=== PATIENT | female | born 1995 | race Caucasian/White ===

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

== ENCOUNTER → 2017-03-09 | Outpatient (CLI) | payer OTHER ==
[~2017-03-09] MED LIST: NAPR1TAB86 PO; PRED20TA PO
--- NOTE | 2017-03-09 15:22 | REP ---
REASON: Right knee pain times two years. COMPARISON: 05/12/2013. FINDINGS: The compartments are symmetric and relatively well maintained. There is no acute fracture or destructive osseous lesion. No change from the prior exam. Signed by Kofi Randle DO 03/10/2017 11:29 A
== END ==
LOC: M SMT 13:55
PROVIDERS: ATTEND Physician Assistant
DX: M25.561 Pain in right knee (principal)

== ENCOUNTER 2017-03-12 06:24 | Emergency (ER) | payer OTHER ==
[2017-03-12 06:30] VITALS: BP 134/85
[2017-03-12] MEDS ORDERED: NAPR1TAB86 PO (06:35)
[2017-03-12] MEDS ORDERED: diphenhydrAMINE INJ 50MG/ML VIAL (J1200) IV STA (06:45)
[2017-03-12] MEDS ORDERED: dexameTHASONE 20 MG/5 ML VIAL (J1100) IV ONE (06:45)
[2017-03-12] MEDS ORDERED: PRED20TA PO (06:51)
== END 2017-03-12 07:29 | disposition home or self-care (01) ==
LOC: M ED 06:24
DX: T78.40XA Allergy, unspecified, initial encounter (principal); X58.XXXA Exposure to other specified factors, initial encounter; Y92.9 Unspecified place or not applicable; Y93.9 Activity, unspecified; Y99.8 Other external cause status; Z79.1 Long term (current) use of non-steroidal anti-inflammatories (NSAID); Z88.6 Allergy status to analgesic agent
CPT/HCPCS: 96374; 96375; 99283; J1100; J1200

== ENCOUNTER → 2017-10-21 | Outpatient (REF) | payer OTHER ==
[2017-10-21 20:30] LABS: CHLAMYDIA DNA AMPLIFICATION NEGATIVE (NEGATIVE); GC DNA AMPLIFICATION NEGATIVE (NEGATIVE)
== END ==
LOC: M SFHCWAGY 17:00
DX: R10.2 Pelvic and perineal pain (principal)
CPT/HCPCS: 87591

== ENCOUNTER → 2017-10-26 | Outpatient (CLI) | payer OTHER | LOC: M WHC 09:17 | DX: R10.2 Pelvic and perineal pain (principal) ==

== ENCOUNTER → 2018-05-26 | Outpatient (REF) | payer OTHER | LOC: M LAB REF 18:06 | DX: J03.90 Acute tonsillitis, unspecified (principal) | CPT/HCPCS: 87070 ==

== ENCOUNTER → 2021-02-13 | Outpatient (CLI) | payer SELFPAY | LOC: M LABSMTC 11:08 | PROVIDERS: ATTEND Pediatrics | DX: Z11.52 Encounter for screening for COVID-19 (principal) ==

== ENCOUNTER → 2022-05-29 | Outpatient (CLI) | payer OTHER ==
[2022-05-29 10:38] LABS: HEMATOCRIT 44.7 % (36.0-47.0); HEMOGLOBIN 14.9 g/dl (12.0-15.5); MEAN CORPUSCULAR HEMOGLOBIN 30.6 pg (27.0-33.0); MEAN CORPUSCULAR HGB CONC 33.3 g/dl (32.0-36.5); MEAN CORPUSCULAR VOLUME 91.8 fl (80.0-96.0); PLATELET COUNT, AUTOMATED 264 10^3/uL (150-450); RED BLOOD COUNT 4.87 10^6/uL (4.00-5.40); WHITE BLOOD COUNT 11.1 10^3/uL (4.0-10.0)
[2022-05-29 12:07] LABS: ALBUMIN 3.7 GM/DL (3.2-5.2); ALT/SGPT 28 U/L (12-78); BILIRUBIN,TOTAL 0.6 MG/DL (0.2-1.0); BLOOD UREA NITROGEN 8 MG/DL (7-18); CARBON DIOXIDE LEVEL 29 MEQ/L (21-32); CHLORIDE LEVEL 106 MEQ/L (98-107); CREATININE FOR GFR 0.92 MG/DL (0.55-1.30); GLOMERULAR FILTRATION RATE > 60.0 (>60); GLUCOSE, FASTING 99 MG/DL (70-100); SODIUM LEVEL 139 MEQ/L (136-145); TOTAL PROTEIN 7.2 GM/DL (6.4-8.2)
== END ==
LOC: M LAB 09:51
DX: E66.01 Morbid (severe) obesity due to excess calories (principal)

== ENCOUNTER 2022-08-29 13:18 | Emergency (ER) | payer OTHER ==
[~2022-08-29] VITALS: Ht 175.3 cm; Wt 142.8 kg
[2022-08-29] MEDS: ONDANSETRON 4MG 2ML VIAL IV ONE (15:26)
[2022-08-29] MEDS: NS 1,000 ML IV ONE (15:26)
[2022-08-29 15:41] LABS: BASO % 0.2 % (0.0-1.0); EOS # 0.2 10^3/uL (0.0-0.5); HEMATOCRIT 46.2 % (36.0-47.0); HEMOGLOBIN 15.9 g/dl (12.0-15.5); LYMPH # 1.3 10^3/uL (1.5-5.0); LYMPH % 14.3 % (24.0-44.0); MEAN CORPUSCULAR HEMOGLOBIN 30.7 pg (27.0-33.0); MEAN CORPUSCULAR HGB CONC 34.4 g/dl (32.0-36.5); MEAN CORPUSCULAR VOLUME 89.2 fl (80.0-96.0); MONO # 0.6 10^3/uL (0.0-0.8); MONO % 6.3 % (2.0-8.0); NEUTROPHILS # 6.8 10^3/uL (1.5-8.5); NEUTROPHILS % 76.7 % (36.0-66.0); PLATELET COUNT, AUTOMATED 244 10^3/uL (150-450); RED BLOOD COUNT 5.18 10^6/uL (4.00-5.40); WHITE BLOOD COUNT 8.9 10^3/uL (4.0-10.0)
[2022-08-29 16:08] LABS: C REACTIVE PROTEIN QUANTITATIV 2.9 MG/DL (<1.0)
[2022-08-29 16:10] LABS: ALBUMIN 3.7 G/DL (3.2-5.2); BILIRUBIN,DIRECT 0.3 MG/DL (<0.4); BILIRUBIN,TOTAL 1.1 MG/DL (0.3-1.2); TOTAL PROTEIN 7.3 G/DL (5.7-8.2)
[2022-08-29] MEDS ORDERED: ISOVUE-370 76% 100ML VIAL As Ordered ONE (16:14)
[2022-08-29 16:30] LABS: ERYTHROCYTE SEDIMENTATION RATE 24 mm/hr (0-20)
[2022-08-29] MEDS ORDERED: ONDA4TAB6 PO (19:16)
[2022-08-29 19:33] VITALS: BP 129/69
== END 2022-08-29 19:35 | disposition home or self-care (01) ==
LOC: M ED 13:18
DX: R11.2 Nausea with vomiting, unspecified (principal); Z79.1 Long term (current) use of non-steroidal anti-inflammatories (NSAID); Z88.0 Allergy status to penicillin; Z88.5 Allergy status to narcotic agent; Z88.8 Allergy status to other drugs, medicaments and biological substances; Z90.49 Acquired absence of other specified parts of digestive tract

== ENCOUNTER → 2023-01-23 | Outpatient (REF) | payer OTHER ==
[~2023-01-23] MED LIST changes: +ONDA4TAB6 PO
[2023-01-23 11:57] LABS: APPEARANCE, URINE CLOUDY (CLEAR); BACTERIA, URINE AUTO 1+ (NEGATIVE); BILIRUBIN, URINE AUTO NEGATIVE (NEGATIVE); BLOOD, URINE BLOOD 2+ (NEGATIVE); CALCIUM OXALATE CRYSTALS LARGE; COLOR, URINE AMBER (YELLOW); GLUCOSE, URINE (UA) AUTO NEGATIVE (NEGATIVE); KETONE, URINE AUTO NEGATIVE (NEGATIVE); LEUKOCYTE ESTERASE, URINE AUTO 2+ (NEGATIVE); MUCUS, URINE SMALL (NEGATIVE); NITRITE, URINE AUTO NEGATIVE (NEGATIVE); PROTEIN, URINE AUTO NEGATIVE (NEGATIVE); RBC, URINE AUTO 6 /HPF (0-3); SPECIFIC GRAVITY URINE AUTO 1.024 (1.002-1.035); SQUAMOUS EPITHELIAL CELL UR AU 28 /HPF (0-6); WBC, URINE AUTO 15 /HPF (0-3)
[2023-01-23 13:41] LABS: GC DNA AMPLIFICATION NEGATIVE (NEGATIVE)
== END ==
LOC: M LAB REF 11:15
PROVIDERS: ATTEND Physician Assistant
DX: Z11.3 Encounter for screening for infections with a predominantly sexual mode of transmission (principal)

== ENCOUNTER 2023-07-06 10:04 | Emergency (ER) | payer OTHER ==
[~2023-07-06] VITALS: Ht 180.3 cm; Wt 98.5 kg
[2023-07-06 10:05] VITALS: BP 118/71; TEMP 98; O2SAT 100
[2023-07-06] MEDS ORDERED: OMEP40CA5 (10:23)
[2023-07-06 10:56] LABS: URINE PREG TEST NEGATIVE (NEGATIVE)
== END 2023-07-06 12:59 | disposition left against medical advice (07) ==
LOC: EEVIPCON 10:04 → M ED 10:04
DX: Z53.21 Procedure and treatment not carried out due to patient leaving prior to being seen by health care provider (principal)

== ENCOUNTER 2024-08-08 12:24 | Emergency (ER) | payer OTHER ==
[~2024-08-08] VITALS: Ht 180.3 cm; Wt 95.7 kg
[~2024-08-08 12:24] MED LIST changes: +OMEP40CA5; +ONDA-282 PO; -ONDA4TAB6 PO
[2024-08-08 12:29] VITALS: BP 121/71; TEMP 98.3; O2SAT 99
[2024-08-08 14:03] LABS: BASO # 0.1 10^3/uL (0.0-0.2); BASO % 0.4 % (0.0-1.0); EOS # 0.2 10^3/uL (0.0-0.5); EOS % 1.2 % (0.0-3.0); HEMOGLOBIN 12.5 g/dl (12.0-15.5); LYMPH # 3.3 10^3/uL (1.5-5.0); LYMPH % 24.1 % (24.0-44.0); MEAN CORPUSCULAR HGB CONC 35.7 g/dl (32.0-36.5); MEAN CORPUSCULAR VOLUME 92.3 fl (80.0-96.0); MONO # 0.6 10^3/uL (0.0-0.8); MONO % 4.5 % (2.0-8.0); NEUTROPHILS # 9.5 10^3/uL (1.5-8.5); NEUTROPHILS % 69.4 % (36.0-66.0); PLATELET COUNT, AUTOMATED 193 10^3/uL (150-450); RED BLOOD COUNT 3.79 10^6/uL (4.00-5.40); WHITE BLOOD COUNT 13.7 10^3/uL (4.0-10.0)
[2024-08-08 14:29] LABS: LIPASE 29 U/L (12-53)
[2024-08-08 14:31] LABS: ALBUMIN 3.2 G/DL (3.2-5.2); ALKALINE PHOSPHATASE 48 U/L (35-104); ALT/SGPT 12 U/L (7.0-40); AST/SGOT 9 U/L (<34); BILIRUBIN,DIRECT 0.1 MG/DL (<0.4); BILIRUBIN,TOTAL 0.4 MG/DL (0.3-1.2); BLOOD UREA NITROGEN 6 MG/DL (9-23); CALCIUM LEVEL 8.6 MG/DL (8.5-10.1); CARBON DIOXIDE LEVEL 23 MMOL/L (20-31); CHLORIDE LEVEL 108 MMOL/L (98-107); CREATININE FOR GFR 0.54 MG/DL (0.55-1.30); GLOMERULAR FILTRATION RATE > 60.0 (>60); GLUCOSE, FASTING 78 MG/DL (60-100); POTASSIUM SERUM 3.9 MMOL/L (3.5-5.1); SODIUM LEVEL 139 MMOL/L (136-145)
[2024-08-08 15:11] LABS: APPEARANCE, URINE HAZY (CLEAR); BACTERIA, URINE AUTO 1+ (NEGATIVE); BILIRUBIN, URINE AUTO NEGATIVE (NEGATIVE); BLOOD, URINE BLOOD NEGATIVE (NEGATIVE); COLOR, URINE YELLOW (YELLOW); GLUCOSE, URINE (UA) AUTO NEGATIVE (NEGATIVE); KETONE, URINE AUTO NEGATIVE (NEGATIVE); LEUKOCYTE ESTERASE, URINE AUTO NEGATIVE (NEGATIVE); MUCUS, URINE SMALL (NEGATIVE); NITRITE, URINE AUTO NEGATIVE (NEGATIVE); PROTEIN, URINE AUTO NEGATIVE (NEGATIVE); RBC, URINE AUTO 1 /HPF (0-3); SPECIFIC GRAVITY URINE AUTO 1.017 (1.002-1.035); SQUAMOUS EPITHELIAL CELL UR AU 9 /HPF (0-6); WBC, URINE AUTO 1 /HPF (0-3)
[2024-08-08] MEDS: ACETAMINOPHEN 500 MG TAB PO ONE (17:05)
== END 2024-08-08 17:30 | disposition home or self-care (01) ==
LOC: M ED 12:24
DX: R10.2 Pelvic and perineal pain (principal); Z3A.18 18 weeks gestation of pregnancy; E28.2 Polycystic ovarian syndrome; Z88.0 Allergy status to penicillin; Z88.5 Allergy status to narcotic agent